=== PATIENT | female | born 2000 | race Caucasian/White ===

== ENCOUNTER 2024-02-29 15:44 | Emergency (ER) | payer BC ==
[2024-02-29 16:35] LABS: Absolute Neutrophil Ct (ANC) 5.97 x10^3/uL (1.56-6.13); BASOPHIL % 0.3 % (0.1-1.2); Basophil (Absolute #) 0.03 x10^3/uL (0.01-0.08); Eosinophil (Absolute #) 0.09 x10^3/uL (0.04-0.36); Hematocrit 40.7 % (34.1-44.9); Hemoglobin 13.2 g/dL (11.2-15.7); IMMATURE GRAN # 0.01 x10^3u/L (0.001-0.031); IMMATURE GRAN % 0.1 % (0.001-0.429); Lymphocyte (Absolute #) 2.46 x10^3/uL (1.18-3.74); Lymphocytes % 26.9 % (19.3-51.7); Mean Corpuscular Hemoglobin 25.9 pg (25.6-32.2); Mean Corpuscular Hgb Concent. 32.4 g/dL (32.2-35.5); Mean Platelet Volume 9.1 fL (9.4-12.3); Monocyte (Absolute #) 0.57 x10^3/uL (0.24-0.86); Monocytes % 6.2 % (4.7-12.5); Neutrophil % 65.5 % (34.0-71.1); Platelet Count 382 x10^3/uL (182-369); Red Blood Count 5.09 x10^6/uL (3.93-5.22); Red Cell Distribution Width 14.2 % (11.7-14.4); White Blood Count 9.1 x10^3/uL (3.98-10.04)
[2024-02-29] MEDS ORDERED: Sodium Chloride 0.9% 1000 ML 1,000 ML ONE (16:35)
[2024-02-29] MEDS: Sodium Chloride 0.9% 1000 ML 1,000 ML IV SCH (16:47)
[2024-02-29 16:48] LABS: ALBUMIN 4.5 g/dL (3.5-5.0); ANION GAP 14.7 MEQ/L (5-15); BILIRUBIN,TOTAL 0.5 mg/dL (0.2-1.3); Calcium 9.8 mg/dL (8.4-10.2); Creatinine 1 0.68 mg/dL (0.52-1.04); EST GLOMERULAR FILTRATION RATE 124.7 ML/MIN; Potassium 3.6 mmol/L (3.5-5.1); Total Protein 7.8 g/dL (6.3-8.2)
--- NOTE | 2024-02-29 17:07 | XRAY ---
Indication: Paresthesia. Headache 1 day. No known injury. Multiple contiguous axial images obtained through the head without contrast. Comparison: None Normal appearing brain parenchyma, ventricles, and bony calvarium. Mild mucosal thickening both ethmoid sinuses. Mastoid air cells are clear. Impression: Normal CT head without contrast exam. Incidental mild paranasal sinus disease.
[2024-02-29] MEDS ORDERED: TORAdol 30 mg Injection ONE (19:47)
[2024-02-29] MEDS ORDERED: Compazine 10 MG/2 ML ONE (19:47)
[2024-02-29] MEDS ORDERED: BENADRYL 50 MG/ML ONE (19:47)
[2024-02-29] MEDS: TORAdol 30 mg Injection IV ONE (19:49)
[2024-02-29] MEDS: Compazine 10 MG/2 ML IV ONE (19:50)
[2024-02-29] MEDS: BENADRYL 50 MG/ML IV ONE (19:50)
[2024-02-29 20:44] VITALS: BP 115/81; PULSE 66; RESP 19; O2SAT 97
--- NOTE | 2024-02-29 20:51 | ERPHSYRPT ---
- History of Present Illness Time Seen by Provider: 02/29/24 16:10 Source: patient Exam Limitations: no limitations Patient Subjective Stated Complaint: pain by right ear that turned into a headache, and then tingling and numbness down her right arm and right side of cheek Triage Nursing Assessment: Pt brought self to the ER, hypertensive, tachycardic, denies pain, pulses normal, skin n/w/d, no deficits, no breathing problems, doesn't appear to be in any distress Physician History: 23-year-old female presents to our ED for evaluation of numbness tingling to her right face right arm. Patient states symptoms started with right ear pain. This progressed into migraine headache followed by her symptoms of her right upper lower extremity. No weakness. Symptoms started this afternoon. No trauma no fever no nausea no vomiting no blurred vision or slurred speech. No diarrhea no rash. Symptoms were constant and moderate in intensity. No specific worsening or improving factors. Patient denies a history of the same. She voices no other complaints or concerns at this time. Portions of this note were created with voice recognition technology. There may be grammatical, spelling, punctuation or sound alike errors Timing/Duration: today Severity: moderate Modifying Factors: Improves With: nothing Associated Symptoms: denies symptoms Allergies/Adverse Reactions: No Known Drug Allergies Allergy (Verified 02/29/24 16:02) Home Medications: No Reportable Medications [No Reported Medications] 02/29/24 [History] Hx Influenza Vaccination/Date Given: No Hx Pneumococcal Vaccination/Date Given: No Travel Risk - International Travel Have you traveled outside of the country in past 3 weeks: No - Emerging Infectious Disease Are you exhibiting symptoms associated with any current EIDs: No - Review of Systems Constitutional: No Symptoms, No Fever, No Chills Eyes: No Symptoms Ears, Nose, & Throat: No Symptoms Respiratory: No Symptoms, No Cough, No Dyspnea Cardiac: No Symptoms, No Chest Pain, No Edema, No Syncope Abdominal/Gastrointestinal: No Symptoms, No Abdominal Pain, No Nausea, No Vomiting, No Diarrhea Genitourinary Symptoms: No Symptoms, No Dysuria Musculoskeletal: No Symptoms, No Back Pain, No Neck Pain Skin: No Rash Neurological: No Dizziness, No Focal Weakness, No Sensory Changes Psychological: No Symptoms Endocrine: No Symptoms All Other Systems: Reviewed and Negative - Past Medical History Pertinent Past Medical History: Yes Neurological History: Migraines Other Medical History: some kind of autoimmune disease but can't find out what kind - Past Surgical History Past Surgical History: Yes Other Surgical History: skin graft in mouth as a child. lymph node removed for biopsy - Female History Hx Now: No (unknown) - Social History Smoking Status: Former smoker Exposure to second hand smoke: No Drug Use: none - Social Determinants of Health Will the patient participate in the screening: Yes Do you worry about a steady place to live?: No Do you have any problems with any of the following?: No known problems In the past 12 months,have you had to go without utilities?: No Transportation Issues: No Has anyone in your support network made you feel unsafe?: No Have you or anyone in your house had to go without enough: No - Nursing Vital Signs Nursing Vital Signs: Initial Vital Signs Pulse Rate 88 02/29/24 16:00 Respiratory Rate 12 02/29/24 16:00 Blood Pressure 131/83 02/29/24 16:00 O2 Sat by Pulse Oximetry 97 02/29/24 16:00 Pain Scale Pain Intensity 0 - Physical Exam General Appearance: no apparent distress, alert Eye Exam: PERRL/EOMI, eyes nml inspection Ears, Nose, Throat Exam: normal ENT inspection, TMs normal, pharynx normal, moist mucous membranes Neck Exam: normal inspection, non-tender, supple, full range of motion Respiratory Exam: normal breath sounds, lungs clear, No respiratory distress Cardiovascular Exam: regular rate/rhythm, normal heart sounds, normal peripheral pulses Gastrointestinal/Abdomen Exam: soft, normal bowel sounds, No tenderness, No mass Back Exam: normal inspection, normal range of motion, No CVA tenderness, No vertebral tenderness Extremity Exam: normal inspection, normal range of motion, pelvis stable Neurologic Exam: alert, oriented x 3, cooperative, normal mood/affect, sensation nml, other (Patient describes paresthesias in the right face and right arm. However otherwise no focal or lateralizing symptoms. No strength deficits. No lateralizing objective findings), No motor deficits Skin Exam: normal color, warm, dry, No rash Lymphatic Exam: No adenopathy SpO2 Interpretation: normal SpO2: 97 O2 Delivery: Room Air - Course Nursing assessment & vital signs reviewed: Yes - CT Exams Head CT Interpretation: Tele-radiologist Report (No acute intracranial process. Mild paranasal sinus disease. Patient asymptomatic from her paranasal sinus disease) Ordered Tests: Active Orders 24 hr Category Date Time Status Plugman STAT Care 02/29/24 16:10 Active EKG-ER Only STAT Care 02/29/24 16:10 Active IV Insertion STAT Care 02/29/24 16:10 Active Pulse Oximetry (ED) STAT Care 02/29/24 16:10 Active HEAD WITHOUT CONTRAST [CT] Stat Exams 02/29/24 16:09 Completed CBC W DIFF Stat Lab 02/29/24 16:15 Completed CMP Stat Lab 02/29/24 16:15 Completed TROPONIN Q4H Lab 02/29/24 16:15 Completed TROPONIN Q4H Lab 02/29/24 20:15 Received TROPONIN Q4H Lab 03/01/24 00:15 Ordered Medication Summary Generic Name Dose Route Start Last Admin Trade Name Freq PRN Reason Stop Dose Admin Sodium Chloride 1,000 mls @ 50 mls/hr 02/29/24 16:15 02/29/24 16:47 Sodium Chloride 0.9% 1000 Ml IV 03/30/24 16:14 50 mls/hr .Q20H SAM Administration Discontinued Medications Generic Name Dose Route Start Last Admin Trade Name Freq PRN Reason Stop Dose Admin Diphenhydramine HCl 25 mg 02/29/24 19:42 02/29/24 19:50 Diphenhydramine Hcl 50 Mg/Ml Vial IV 02/29/24 19:43 25 mg STAT ONE Administration Diphenhydramine HCl Confirm 02/29/24 19:47 Diphenhydramine Hcl 50 Mg/Ml Vial Administered 02/29/24 19:48 Dose 50 mg .ROUTE .STK-MED ONE Ketorolac Tromethamine 30 mg 02/29/24 19:41 02/29/24 19:49 Ketorolac Tromethamine 30 Mg/Ml Inj IV 02/29/24 19:42 30 mg STAT ONE Administration Ketorolac Tromethamine Confirm 02/29/24 19:47 Ketorolac Tromethamine 30 Mg/Ml Inj Administered 02/29/24 19:48 Dose 30 mg .ROUTE .STK-MED ONE Prochlorperazine Edisylate 10 mg 02/29/24 19:42 02/29/24 19:50 Prochlorperazine Edisylate 10 Mg/2 Ml Vial IV 02/29/24 19:43 10 mg STAT ONE Administration Prochlorperazine Edisylate Confirm 02/29/24 19:47 Prochlorperazine Edisylate 10 Mg/2 Ml Vial Administered 02/29/24 19:48 Dose 10 mg .ROUTE .STK-MED ONE Lab/Rad Data: Laboratory Result Diagrams 02/29/24 16:15 02/29/24 16:15 Laboratory Results 02/29/24 02/29/24 02/29/24 Range/Units 16:15 16:15 16:15 WBC 9.1 (3.98-10.04) x10^3/uL RBC 5.09 (3.93-5.22) x10^6/uL Hgb 13.2 (11.2-15.7) g/dL Hct 40.7 (34.1-44.9) % MCV 80.0 (79.4-94.8) fL MCH 25.9 (25.6-32.2) pg MCHC 32.4 (32.2-35.5) g/dL RDW 14.2 (11.7-14.4) % Plt Count 382 H (182-369) x10^3/uL MPV 9.1 L (9.4-12.3) fL Gran % 65.5 (34.0-71.1) % Immature Gran % (Auto) 0.1 (0.001-0.429) % Nucleat RBC Rel Count 0.0 (0.00-0.2) % Eos # (Auto) 0.09 (0.04-0.36) x10^3/uL Immature Gran # (Auto) 0.01 (0.001-0.031) x10^3u/L Absolute Lymphs (auto) 2.46 (1.18-3.74) x10^3/uL Absolute Monos (auto) 0.57 (0.24-0.86) x10^3/uL Absolute Nucleated RBC 0.00 (0.00-0.012) x10^3u/L Lymphocytes % 26.9 (19.3-51.7) % Monocytes % 6.2 (4.7-12.5) % Eosinophils % 1.0 (0.7-5.8) % Basophils % 0.3 (0.1-1.2) % Absolute Granulocytes 5.97 (1.56-6.13) x10^3/uL Basophils # 0.03 (0.01-0.08) x10^3/uL Sodium 140 (135-145) mmol/L Potassium 3.6 (3.5-5.1) mmol/L Chloride 107 (98-107) mmol/L Carbon Dioxide 22 (22-30) mmol/L Anion Gap 14.7 (5-15) MEQ/L BUN 10 (7-17) mg/dL Creatinine 0.68 (0.52-1.04) mg/dL Estimated GFR 124.7 ML/MIN Glucose 115 H (74-106) mg/dL Calcium 9.8 (8.4-10.2) mg/dL Total Bilirubin 0.50 (0.2-1.3) mg/dL AST 23 (14-36) U/L ALT 22 (0-35) U/L Alkaline Phosphatase 100 (38-126) U/L Troponin I < 0.012 (0.000-0.033) ng/mL Serum Total Protein 7.8 (6.3-8.2) g/dL Albumin 4.5 (3.5-5.0) g/dL - Progress Progress: improved Progress Note: Teleneuro consulted. They feel patient's symptoms are secondary to migraine headache. Per neurology they advised to treat patient's migraine. If symptoms resolve the patient may be discharged home otherwise admission. Patient headache treated. Symptoms resolved. Headache resolved. Paresthesia and numbness resolved. We will discharge patient home per neurology recommendations. Patient agrees to follow-up with her primary care doctor within 48 hours for evaluation. Portions of this note were created with voice recognition technology. There may be grammatical, spelling, punctuation or sound alike errors Complexity problem addressed is moderate acute complicated. No critical care time. Complexity of data reviewed and analyzed is extensive. Test ordered test reviewed results analyzed and correlated clinically with history and physical exam. Neurology consulted. Risk of complication and or risk of morbidity/mortality patient management is low. Vital stable. Time spent to discharge patient approximately 20 minutes. Plan of care established for shared decision making. No social determinants of health present impede follow-up. Portions of this note were created with voice recognition technology. There may be grammatical, spelling, punctuation or sound alike errors 02/29/24 20:55 Counseled pt/family regarding: lab results, diagnosis, need for follow-up, rad results - Departure Departure Disposition: Home Clinical Impression: Paresthesia, Migraine Condition: Stable Critical Care Time: No Referrals: DOCTOR,NO FAMILY [Primary Care Provider] - Follow up/PCP as directed BROOKE GALLARDO DO [ACTIVE STAFF] - Follow up/PCP as directed Additional Instructions: Discharge/Care Plan CHANTALKRISTIAN FLORES was seen on 02/29/24 in the Emergency Room. The patient was counseled regarding Diagnosis,Lab results, Imaging studies, need for follow up and when to return to the Emergency Room. Prescriptions given: Discharge Note I have spoken with the patient and/or caregivers. I have explained the patient's condition, diagnosis and treatment plan based on the information available to me at this time. I have answered the patient's and/or caregiver's questions and addressed any concerns. The patient and/or caregivers have as good understanding of the patient's diagnosis, condition and treatment plan as can be expected at this point. The vital signs have been stable. The patient's condition is stable and appropriate for discharge from the emergency department. The patient will pursue further outpatient evaluation with the primary care physician or other designated or consulting physician as outlined in the discharge instructions. The patient and/or caregivers are agreeable to this plan of care and follow-up instructions have been explained in detail. The patient and/or caregivers have received these instruction. The patient/and or caregivers are aware that any significant change in condition or worsening of symptoms should prompt an immediate return to this or the closest emergency department or call 911.
== END 2024-02-29 21:08 | disposition home or self-care (01) ==
LOC: ED 15:44
DX: R20.2 Paresthesia of skin (principal); G43.909 Migraine, unspecified, not intractable, without status migrainosus
CPT/HCPCS: 36000; 36415; 70450; 80053; 84484; 85025; 93005; 93041; 94760; 96360; 96374; 96375; 99284; J1200; J1885